=== PATIENT | female | born 1995 | race Asian ===

== ENCOUNTER → 2018-02-04 | Outpatient (CLI) | payer BC | LOC: COL.RAD 13:10 | DX: M25.561 Pain in right knee (principal) ==

== ENCOUNTER 2018-09-15 13:41 | Emergency (ER) | payer BC ==
[~2018-09-15] VITALS: Ht 162.6 cm; Wt 53.6 kg
[2018-09-15] MEDS ORDERED: NEXPLANON68 MG ID (13:56)
[2018-09-15] MEDS ORDERED: LEXAPRO 10MG10 MG PO (13:56)
[2018-09-15] MEDS ORDERED: DESYREL 50MG50 MG PO (13:56)
[2018-09-15] MEDS ORDERED: FLEXERIL 1010 MG/TAB PO ×2 (16:24→16:59)
[2018-09-15 16:32] LABS: COLLECTION METHOD CLEAN CATCH
[2018-09-15 16:40] LABS: MUCOUS Present /lpf; PH 6 (5-8); SQUAMOUS EPITHELIAL 0-2 /hpf; URINE APPEARANCE Clear; URINE BACTERIA None Seen /hpf; URINE BILIRUBIN Negative (NEGATIVE); URINE BLOOD Negative (NEGATIVE); URINE COLOR Yellow; URINE GLUCOSE Negative (NEGATIVE); URINE KETONE 1+ (NEGATIVE); URINE LEUKOCYTE ESTERASE Negative (NEGATIVE); URINE NITRATE Negative (NEGATIVE); URINE PROTEIN(semi-quant) Negative (NEGATIVE); URINE RBC 0-2 /hpf; URINE UROBILINOGEN Negative (NEGATIVE)
== END 2018-09-15 17:00 | disposition home or self-care (01) ==
LOC: COL.ER 13:41
PROVIDERS: Nurse Practitioner
DX: M54.5 Low back pain (principal); F41.9 Anxiety disorder, unspecified
CPT/HCPCS: J1885